=== PATIENT | male | born 2000 | race Caucasian/White ===

== ENCOUNTER 2023-08-28 15:34 | Inpatient (IN) ==
[2023-08-28 16:09] LABS: Basophils # (auto) 0.03 K/uL (0.00-0.20); Basophils % (auto) 0.4 %; Eosinophils # (auto) 0.11 K/uL (0.00-0.50); Eosinophils % (auto) 1.4 %; Hematocrit (blood only) 46.1 % (42.0-52.0); Hemoglobin 15.5 g/dl (14.0-18.0); Immature Granulocytes # (auto) 0.02 K/uL (0.01-0.20); Immature Granulocytes % (auto) 0.3 %; Lymphocytes # (auto) 1.63 K/uL (1.20-3.40); Lymphocytes % (auto) 21.3 %; Mean Corpuscular Hemoglobin 27.3 pg (25.0-34.0); Mean Corpuscular Hgb Conc 33.6 g/dL (32.0-36.0); Mean Corpuscular Volume 81.2 fL (80.0-100.0); Mean Platelet Volume 11.4 fL (9.4-12.4); Monocytes # (auto) 0.48 K/uL (0.11-0.59); Monocytes % (auto) 6.3 %; Neutrophils # (auto) 5.37 K/uL (1.40-6.50); Neutrophils % (auto) 70.3 %; Platelet Count 245 K/uL (130-400); RDW Coefficient of Variation 12.8 % (11.5-14.5); RDW Standard Deviation 37.3 fL (36.4-46.3); Red Blood Count 5.68 M/uL (4.70-6.10); White Blood Count 7.64 K/ul (4.8-10.8)
[2023-08-28 16:29] LABS: Albumin Globulin Ratio 1.5 (0.9-2); Albumin Level 4.7 gm/dl (3.4-5.0); Bilirubin,Total 0.8 mg/dl (0.2-1.0); Calcium 9.7 mg/dl (8.6-10.3); Creatinine Clr Calc Pharmacy 149.8 ml/min; Est GFR (African American) 149.6 ml/min; Globulin 3.2 gm/dl (2.5-4.0); Potassium 4.2 mmol/L (3.5-5.1); Total Protein 7.9 gm/dl (6.0-8.3)
[2023-08-28] MEDS ORDERED: ACETAMINOPHEN 1,000 MG/100 ML VIAL IV STA (16:53)
--- NOTE | 2023-08-28 16:53 | Emergency Department Note ---
Impression & Plan Abdominal pain, RUQ, Gallstone, Biliary colic ED Provider Note HISTORY OF PRESENT ILLNESS: Patient is a 23-year-old male presenting with right upper quadrant abdominal pain. Patient reports that he presented 5 days ago with similar symptoms and was found to have gallstones. He was instructed that if he developed any worsening pain that he should represent to the emergency department. Patient reports that last night he had a dull and constant pain in his right upper quadrant that significantly worsened this morning. Denies any nausea or vomiting. He reports he has tried Tylenol and ibuprofen without any relief of symptoms. Denies any diarrhea but does report his stool is "looser than normal." He denies any history of abdominal surgeries. Denies any dysuria or hematuria. Denies any fevers. States the pain since waking this morning has been constant pressure in his right upper quadrant and intermittently is very sharp and radiates into his back right shoulder. ROS: as above PHYSICAL EXAM: Constitutional: Patient appears in no acute distress. HENT: Head: Normocephalic and atraumatic. Eyes: EOMI, PERRL Mouth/Throat: Mucous membranes moist. Neck: Trachea midline. Neck supple. Cardiovascular: RRR, No murmurs, rubs or gallops. Intact distal pulses. Pulmonary/Chest: No respiratory distress. Breath sounds clear and equal bilaterally. No wheezes or rales. Abdominal: Abdomen soft, no rebound or guarding. RUQ TTP Musculoskeletal: No edema, tenderness or deformity noted. Skin: Warm and dry. No rash, erythema, pallor or cyanosis Psychiatric: Appropriate mood and affect for situation. Neurological: Alert and keenly responsive. CN II-XII grossly intact, moving al l extremities equally and fully. MDM: - Vitals signs showed tachycardia. - History obtained via patient. Patient presents with right upper quadrant abdominal pain. Patient reports that he was diagnosed with a gallstone 5 days ago. He reports that the pain significantly worsened last night and into today. He reports loose stool. Denies any nausea or vomiting. Denies any fevers. Denies any history of abdominal surgeries - Chronic conditions affecting care: None - Differential diagnoses include, but are not limited to: Biliary colic; cholangitis; cholecystitis; hepatitis; right lower lobe pneumonia; pulmonary embolism; pyelonephritis; perforated duodenal ulcer - Order placed for continuous cardiac monitoring. At this time, monitor showed rate of 98 bpm with normal sinus rhythm, per my interpretation. - External medical records reviewed. - Laboratory workup interpreted by myself showed normal WBC; stable electrolytes; normal lipase; normal liver function - RUQ ultrasound showed nonmobile stone in the bladder neck versus a cystic duct. Gallbladder is distended with borderline wall thickening. These findings are equivocal for acute cholecystitis per radiology. - CT abdomen/pelvis with IV contrast showed stone in the gallbladder neck measuring 9 mm. - Patient initially given 1g IV tylenol in ER. On reassessment, he is complaining of pain. Given 50 mcg IV fentanyl. - Discussed case with TY Issa with general surgery. Will see as consult. - Given patient's findings and continued pain on examination, will admit for further pain control and HIDA scan. - Discussion was had with social services assistant about patient's case and need for admission - Hospitalist consulted for admission - Patient admitted to [facility] Hospitalist service for further evaluation and management. ASSESSMENT AND PLAN: Diagnosis: RUQ pain; biliary colic; gallstone Plan: admit Past Med/Surg History Social History Smoking Status: Never smoker Preferred Language: Belarusian Feels Safe at Home: Yes Allergies Allergies Allergy/AdvReac Type Severity Reaction Status Date / Time erythromycin base Allergy Severe Hives and Unverified 08/28/23 18:52 nausea Home Meds Home Medications Medication Instructions Recorded Confirmed albuterol sulfate 90 mcg/actuation 2 puff inhalation .Q4-6H PRN 08/28/23 08/28/23 aerosol inhaler Wheezing cholecalciferol (vitamin D3) 50 50 mcg PO DAILY 08/28/23 08/28/23 mcg (2,000 unit) capsule (Vitamin D3) Results & Data (ED) Vital Signs Vital Signs - 24 hr 08/28/23 15:39 08/28/23 16:45 Temperature 36.7 C Temperature Source Temporal Artery Scan Pulse Rate 71 Pulse Rate [Finger] 98 H Respiratory Rate 18 18 Respiratory Effort / Characteristics Non-Labored Respiratory Depth Normal Blood Pressure 134/96 Blood Pressure [Left Arm] 131/88 Blood Pressure Mean 108 Blood Pressure Mean [Left Arm] 102 Pulse Oximetry 96 98 Oxygen Delivery Method Room Air Room Air Sepsis Recent Fever Within 48 Hours No Sepsis New/Unexplained Change in Mental Status No Sepsis Action Taken by Nursing No Action Required Laboratory Data 08/28/23 15:51 08/28/23 15:51 Lab Results 08/28/23 08/28/23 Range/Units 15:51 15:51 WBC 7.64 (4.8-10.8) K/ul RBC 5.68 (4.70-6.10) M/uL Hgb 15.5 (14.0-18.0) g/dl Hct 46.1 (42.0-52.0) % MCV 81.2 (80.0-100.0) fL MCH 27.3 (25.0-34.0) pg MCHC 33.6 (32.0-36.0) g/dL RDW Std Deviation 37.3 (36.4-46.3) fL RDW Coeff of [place] 12.8 (11.5-14.5) % Plt Count 245 (130-400) K/uL MPV 11.4 (9.4-12.4) fL Immature Gran % (Auto) 0.3 % Neut % (Auto) 70.3 % Lymph % (Auto) 21.3 % [place] % (Auto) 6.3 % Eos % (Auto) 1.4 % Baso % (Auto) 0.4 % Neut # (Auto) 5.37 (1.40-6.50) K/uL Lymph # (Auto) 1.63 (1.20-3.40) K/uL [place] # (Auto) 0.48 (0.11-0.59) K/uL Eos # (Auto) 0.11 (0.00-0.50) K/uL Baso # (Auto) 0.03 (0.00-0.20) K/uL Immature Gran # (Auto) 0.02 (0.01-0.20) K/uL Sodium 137 (136-145) mmol/L Potassium 4.2 (3.5-5.1) mmol/L Chloride 103 (98-107) mmol/L Carbon Dioxide 27 (21-32) mmol/L Anion Gap 7 (3-11) BUN 7 (6-23) mg/dl Creatinine 0.78 (0.6-1.4) mg/dl Est Cr Clr Drug Dosing 149.8 ml/min Est GFR ( Amer) 149.6 ml/min Est GFR (Non-Af Amer) 129.0 ml/min BUN/Creatinine Ratio 9.0 L (10-20) Glucose 82 (70-99(Fasting)) mg/dl Calcium 9.7 (8.6-10.3) mg/dl Total Bilirubin 0.8 (0.2-1.0) mg/dl AST 16 (13-39) U/L ALT 10 (7-52) U/L Alkaline Phosphatase 44 (34-104) U/L Total Protein 7.9 (6.0-8.3) gm/dl Albumin 4.7 (3.4-5.0) gm/dl Globulin 3.2 (2.5-4.0) gm/dl Albumin/Globulin Ratio 1.5 (0.9-2) Lipase 6 L (11-82) U/L Administered Medications Discontinued Medications Fentanyl Citrate (Fentanyl Citrate Pf 100 Mcg/2 Ml Vial) 50 mcg IV NOW STA Stop: 08/28/23 20:39 Last Admin: 08/28/23 20:51 Dose: 50 mcg Documented By: [facility] Acetaminophen (Ofirmev) 1,000 mg in 100 mls @ 400 mls/hr IV NOW STA Stop: 08/28/23 17:07 Last Admin: 08/28/23 17:03 Dose: 400 mls/hr Documented By: [facility] Ioversol (Optiray 320 100ml) 93 ml IV ONCE ONE Stop: 08/28/23 19:27 Last Admin: 08/28/23 19:26 Dose: 93 ml Documented By: [facility] Imaging Data Radiologist's Impression: Gallbladder Ultrasound 08/28/23 15:58 ABDOMINAL ULTRASOUND, RIGHT UPPER QUADRANT HISTORY: Acute right upper quadrant abdominal pain worsening RUQ pain; known gallstones. COMPARISON: 08/23/2023 FINDINGS: Pancreas: The pancreas demonstrates a normal echotexture. Liver: 17 cm in length. Unremarkable. Gallbladder: Mild gallbladder distention with layering biliary sludge. The ga llbladder wall measures up to 0.32 cm. Stones within the gallbladder neck versus cystic duct measuring up to 1 cm, nonmobile. Negative sonographic Sterling sign. No pericholecystic fluid. CBD: 0.4 cm. Right kidney: No hydronephrosis. IMPRESSION: 1. Nonmobile stone within the bladder neck versus cystic duct. The gallbladder is distended with borderline wall thickening. These findings are equivocal for acute cholecystitis as the sonographic Sterling's sign was negative and no pericholecystic fluid is seen. Findings could be correlated with nuclear medicine hepatobiliary scan. 2. No biliary ductal dilation. ACT 112: Negative or not required by law. Electronically signed by: Devaughn Garcia M.D. 08/28/2023 5:52 PM Abdomen/Pelvis CT 08/28/23 18:29 Exam(s): CT ABDOMEN + PELVIS With Contrast IV Amt: 93 ml optiray 320 EXAM: CT Abdomen and Pelvis With Intravenous Contrast CLINICAL HISTORY: Reason for exam: RUQ abdominal pain. TECHNIQUE: Axial computed tomography images of the abdomen and pelvis with intravenous contrast. CTDI is 18.68 mGy and DLP is 920.74 mGy-cm. Automated exposure control was utilized for the study. A dose lowering technique was utilized adhering to the principles of ALARA. CONTRAST: Patient received 93 ml optiray 320 of IV contrast COMPARISON: No relevant prior studies available. FINDINGS: Lung bases: Unremarkable. No mass. No consolidation. ABDOMEN: Liver: Unremarkable. No mass. Gallbladder and bile ducts: Stone in the gallbladder neck measures [address] evidence of acute cholecystitis. If there is concern for acute cholecystitis, ultrasound recommended. No ductal dilation. Pancreas: Unremarkable. No mass. No ductal dilation. Spleen: Unremarkable. No splenomegaly. Adrenals: Unremarkable. No mass. Kidneys and ureters: RIGHT upper pole renal cyst measuring 9 mm. No hydronephrosis. Stomach and bowel: Mild fluid-filled small bowel, correlate for mild enteritis. No obstruction. PELVIS: Appendix: Normal appendix. Bladder: Unremarkable. No mass. Reproductive: Unremarkable as visualized. ABDOMEN and PELVIS: Intraperitoneal space: Unremarkable. No free air. No significant fluid collection. Bones/joints: No acute fracture. No dislocation. Soft tissues: Unremarkable. Vasculature: Unremarkable. No abdominal aortic aneurysm. Lymph nodes: Unremarkable. No enlarged lymph nodes. IMPRESSION: 1. Normal appendix. 2. Stone in the gallbladder neck measures [address] evidence of acute cholecystitis. If there is concern for acute cholecystitis, ultrasound recommended. 3. Mild fluid-filled small bowel, correlate for mild enteritis. Electronically signed by: Param Moran MD 08/28/23 19:52 PM Discharge Plan Visit Data Chief Complaint: Abdominal Pain Stated Complaint: GALL STONE PAIN ED Provider: Katty Nelson Discharge Problem: Abdominal pain, RUQ, Gallstone, Biliary colic Forms Stand Alone Forms: [facility] Prescriptions Prescriptions: No Action albuterol sulfate 90 mcg/actuation HFA aerosol inhaler 2 puff INHALATION .Q4-6H PRN (Reason: Wheezing) cholecalciferol (vitamin D3) [Vitamin D3] 50 mcg (2,000 unit) Capsule 50 mcg PO DAILY Referrals Referrals: [facility] [Primary Care Provider] -
--- NOTE | 2023-08-28 17:54 | Ultrasound Report ---
ABDOMINAL ULTRASOUND, RIGHT UPPER QUADRANT HISTORY: Acute right upper quadrant abdominal pain worsening RUQ pain; known gallstones. COMPARISON: 08/23/2023 FINDINGS: Pancreas: The pancreas demonstrates a normal echotexture. Liver: 17 cm in length. Unremarkable. Gallbladder: Mild gallbladder distention with layering biliary sludge. The gallbladder wall measures up to 0.32 cm. Stones within the gallbladder neck versus cystic duct measuring up to 1 cm, nonmobile. Negative sonographic Sterling sign. No pericholecystic fluid. CBD: 0.4 cm. Right kidney: No hydronephrosis. IMPRESSION: 1. Nonmobile stone within the bladder neck versus cystic duct. The gallbladder is distended with bord braulio wall thickening. These findings are equivocal for acute cholecystitis as the sonographic Bobby y's sign was negative and no pericholecystic fluid is seen. Findings could be correlated with nuclear medicine hepatobiliary scan. 2. No biliary ductal dilation. ACT 112: Negative or not required by law. Electronically signed by: Devaughn Garcia M.D. 08/28/2023 5:52 PM
[2023-08-28] MEDS ORDERED: OPTIRAY 320 100ml IV ONE (19:26)
--- NOTE | 2023-08-28 19:53 | CT Scan Report ---
Exam(s): CT ABDOMEN + PELVIS With Contrast IV Amt: 93 ml optiray 320 EXAM: CT Abdomen and Pelvis With Intravenous Contrast CLINICAL HISTORY: Reason for exam: RUQ abdominal pain. TECHNIQUE: Axial computed tomography images of the abdomen and pelvis with intravenous contrast. CTDI is 18.68 mGy and DLP is 920.74 mGy-cm. Automated exposure control was utilized for the study. A dose lowering technique was utilized adhering to the principles of ALARA. CONTRAST: Patient received 93 ml optiray 320 of IV contrast COMPARISON: No relevant prior studies available. FINDINGS: Lung bases: Unremarkable. No mass. No consolidation. ABDOMEN: Liver: Unremarkable. No mass. Gallbladder and bile ducts: Stone in the gallbladder neck measures [address] evidence of acute cholecystitis. If there is concern for acute cholecystitis, ultrasound recommended. No ductal dilation. Pancreas: Unremarkable. No mass. No ductal dilation. Spleen: Unremarkable. No splenomegaly. Adrenals: Unremarkable. No mass. Kidneys and ureters: RIGHT upper pole renal cyst measuring 9 mm. No hydronephrosis. Stomach and bowel: Mild fluid-filled small bowel, correlate for mild enteritis. No obstruction. PELVIS: Appendix: Normal appendix. Bladder: Unremarkable. No mass. Reproductive: Unremarkable as visualized. ABDOMEN and PELVIS: Intraperitoneal space: Unremarkable. No free air. No significant fluid collection. Bones/joints: No acute fracture. No dislocation. Soft tissues: Unremarkable. Vasculature: Unremarkable. No abdominal aortic aneurysm. Lymph nodes: Unremarkable. No enlarged lymph nodes. IMPRESSION: 1. Normal appendix. 2. Stone in the gallbladder neck measures [address] evidence of acute cholecystitis. If there is concern for acute cholecystitis, ultrasound recommended. 3. Mild fluid-filled small bowel, correlate for mild enteritis. Electronically signed by: Param Moran MD 08/28/23 19:52 PM
[2023-08-28] MEDS ORDERED: fentaNYL citrate PF 100 MCG/2 ML VIAL IV STA (20:38)
--- NOTE | 2023-08-28 21:12 | Surgery Consultation ---
Date of Consultation August 28, 2023 Assessment & Plan (1) Cholelithiasis: Physician she is having the patient mid on the hospital service. Recommend proceeding as follows: Provide analgesics. Would recommend utilizing NSAIDs versus opioids Provide antiemetics Provide IV fluid for hydration Keep the patient n.p.o. for the present time As there is no evidence of cholecystitis or not feel antibiotics are needed at this time The patient be reassessed in the morning by my attending physician Dr. Dias. She will discuss timing of potential cholecystectomy with the patient at that time. Supervising Physician Co-Signing Physician Notes This case was discussed with the surgical PA. I agree with this plan. History of Present Illness Reason for Consultation: Cholelithiasis History of Present Illness This is a 23-year-old male who presented the emergency department secondary to abdominal pain. Patient notes that he has been having on and off abdominal pain for over 1 week. He was seen in the emergency department on 08/23/2023 which will be described below. Patient says that since the a for mentioned emergency department visit he has been having pain primarily located in the right upper quadrant without radiation that comes and goes in an unpredictable fashion. He does note that the pain usually occurs at night. He has not had any nausea or vomiting and he denies any fevers, shakes, or chills. He has never had any abdominal surgeries in the past. Of note, the patient does report that his father did have a cholecystectomy. Since arrival to the emergency department the patient has had labs and imaging which independent reviewed. Patient had a gallbladder ultrasound that showed a nonmobile gallstone within the gallbladder neck. The gallbladder was noted to be distended with borderline gallbladder wall thickening at 0.32 cm. The interpreting radiologist felt that these findings were equivocal for acute cholecystitis a CT scan of the abdomen pelvis again demonstrated a stone in the gallbladder neck measuring approximately [address] scan evidence of acute cholecystitis. Labs included a CBC her white blood cell count, hemoglobin, hematocrit, and platelet count were all normal. Chemistry profile showed sodium, potassium, BUN, and creatinine were normal. Patient had no elevation of his bilirubin, transaminases, or alkaline phosphatase. His lipase is not elevated. Of note, the patient was in the emergency department on 08/23/2023 secondary to abdominal pain on this date the patient did have labs and imaging which I reviewed. CBC revealed white blood cell count, hemoglobin, hematocrit, platelet count were normal. Chemistry profile showed sodium, potassium, BUN, and creatinine were normal. There is again no elevation of patient's bilirubin, transaminases, alkaline phosphatase, or lipase the patient did undergo a gallbladder ultrasound at this visit that showed some echogenic foci within the gallbladder which favored gallstones. There is no gallbladder wall thickening noted on this study. During this emergency department visit the patient did receive some analgesics and it was felt he was stable for discharge home as there is no evidence of cholecystitis on imaging At the time of my interview he was resting comfortably in bed and he was in no distress. Concerning past medical history the patient is treated for asthma Concerning past surgical history he denies any prior surgeries Concerning social history is a non-smoker. Concerning family history the patient's father suffered from cholecystitis. Allergies Allergy/AdvReac Type Severity Reaction Status Date / Time erythromycin base Allergy Severe Hives and Unverified 08/28/23 18:52 nausea Home Medications Medication Instructions Recorded Confirmed Type albuterol sulfate 90 mcg/actuation 2 puff inhalation .Q4-6H PRN 08/28/23 08/28/23 History aerosol inhaler Wheezing cholecalciferol (vitamin D3) 50 50 mcg PO DAILY 08/28/23 08/28/23 History mcg (2,000 unit) capsule (Vitamin D3) Patient History Social History Smoking Status: Never smoker Hx Alcohol Use: Yes Alcohol type: beer Hx Substance Use: No Preferred Language: Moroccan Communication Ability: Effective Crm Campaign Manager Required: No Beliefs That Will Affect Care: None Current Living Situation: Other Current Living Situation Comment: Rental with roommates Other Information That Helps Us Care for You: No Feels Safe at Home: Yes Safety Concerns: Feels Safe At This Time Assistive Devices: None Review of Systems Constitutional: no fever and no chills Ear, Nose, Mouth, Throat: no ear pain Respiratory: no cough Cardiovascular: no chest pain Gastrointestinal: as per Subjective / HPI Genitourinary: no dysuria Musculoskeletal: no back pain Integumentary: no rash Neurologic: no localized weakness Physical Exam Constitutional: WD/WN, vitals as above Eyes: + anicteric sclerae ENMT: Ears: no hearing impairment and no external ear abnormality Mouth: no oropharynx abnormality Neck: trachea midline Respiratory: normal respiratory effort; no respiratory distress and no labored breathing Cardiovascular: Rate/Rhythm: regular rate and regular rhythm Gastrointestinal (Abdomen): Abdomen is soft and nonrigid. It is nondistended. There is pain noted to palpation in the right upper quadrant with a positive Sterling sign Musculoskeletal: No calf tenderness Skin: no rashes Neurologic: moves all extremities Psychiatric: A+Ox3, euthymic affect Results & Data Vital Signs (Past 12 Hours) Vital Signs Temp Pulse Pulse Resp BP BP Pulse Ox 08/28/23 16:45 98 H 18 131/88 98 08/28/23 15:39 36.7 C 71 18 134/96 96 O2 Del Method 08/28/23 16:45 Room Air 08/28/23 15:39 Room Air PG Care Time/CCT Total # of Minutes Spent Total Time Spent with Patient: Total time spent is greater than 50% in coordination of care (as documented) at patient's floor/unit and/or counseling patient: Coding Level of Care Code 61002 IN/OBS CONSULT LVL 5,80M Diagnoses Cholelithiasis K80.20
--- NOTE | 2023-08-28 21:37 | History & Physical Report ---
Date of Service August 28, 2023 Assessment & Plan (1) Biliary colic: (2) Asthma: Plan Pt is a 23 year old male with PMH of asthma presenting with RUQ abdominal pain. Initial workup, given lack of WBC elevation as well as imaging findings, appears most consistent with biliary colic due to cholelithiasis rather than overt cholecystitis. #Biliary Colic: - Admit to med/surg unit - No evidence of acute cholecystitis at this time, will defer antibiotics at this time - NPO - IV maintenance fluids - Pain control with IV toradol, avoid opioids - Prn IV Zofran for nausea/vomiting - Surgery consulted, agree that emergent surgery is not warranted at this time, continue to appreciate recs - AM Labs: repeat CBC, CMP, lipase #Asthma: - Continue prn albuterol Dispo: Med/Surg Diet: NPO VTE ppx: deferred, pt able to ambulate Code: Full code History of Present Illness Chief Complaint: abdominal pain Primary Care Provider: [facility] Pt is a 23 year old male with PMH of asthma presenting with abdominal pain. Patient has been having intermittent episodes of RUQ abdominal pain for several months now, became significantly more frequent and more painful over the past week. Patient was seen in the ED on 08/23, workup significant for gallstones on US but no evidence of cholecystitis found, patient was subsequently discharged and told to return if sx recur or worsen. Patient notes that sx initially seemed less intense after discharge from ED, but began experiencing worsening acute pain yesterday that has been constant since. Patient is unsure if abdominal pain is related to eating, notes that he has had poor appetite this week. Also states that his stools have been looser than usual, denies nausea or vomiting. ED Course: Lab workup negative for elevation in WBC count, patient is afebrile. LFTs WNL. Repeat gallbladder US showed nonmobile stone within gallbladder neck vs cystic duct, GB distension with borderline wall thickening. Negative sonographic Sterling sign, no pericholecystic fluid. CT abdomen also done, significant for 9mm stone in gallbladder neck, negative for evidence of acute cholecystitis. Patient given Acetaminophen and fenatanyl for pain control. Allergies Allergy/AdvReac Type Severity Reaction Status Date / Time erythromycin base Allergy Severe Hives and Unverified 08/28/23 18:52 nausea Home Medications Medication Instructions Recorded Confirmed Type albuterol sulfate 90 mcg/actuation 2 puff inhalation .Q4-6H PRN 08/28/23 08/28/23 History aerosol inhaler Wheezing cholecalciferol (vitamin D3) 50 50 mcg PO DAILY 08/28/23 08/28/23 History mcg (2,000 unit) capsule (Vitamin D3) Past Med/Surg History Social History Smoking Status: Never smoker Hx Alcohol Use: Yes Alcohol type: beer Hx Substance Use: No Preferred Language: French Communication Ability: Effective Plate Conditioner Required: No Beliefs That Will Affect Care: None Current Living Situation: Other Current Living Situation Comment: Rental with roommates Other Information That Helps Us Care for You: No Feels Safe at Home: Yes Safety Concerns: Feels Safe At This Time Assistive Devices: None Review of Systems Review of Systems: All systems reviewed & are unremarkable except as noted in HPI & below Physical Exam Constitutional: WD/WN, vitals as above in mild distress Respiratory: normal respiratory effort, lungs clear to auscultation Cardiovascular: RRR, no murmur, no edema Gastrointestinal (Abdomen): Abdomen non-distended, bowel sounds intact, RUQ tender to palpation, negative Sterling sign Skin: no rashes, warm and dry Psychiatric: A+Ox3, euthymic affect Results & Data Results & Data Vital Signs (Past 12 Hours) Vital Signs Temp Pulse Pulse Resp BP BP Pulse Ox 08/28/23 16:45 98 H 18 131/88 98 08/28/23 15:39 36.7 C 71 18 134/96 96 O2 Del Method 08/28/23 16:45 Room Air 08/28/23 15:39 Room Air Laboratory Results Abnormal lab results 08/28/23 Range/Units 15:51 BUN/Creatinine Ratio 9.0 L (10-20) Lipase 6 L (11-82) U/L Diagnostic Findings Gallbladder Ultrasound 08/28/23 15:58 ABDOMINAL ULTRASOUND, RIGHT UPPER QUADRANT HISTORY: Acute right upper quadrant abdominal pain worsening RUQ pain; known gallstones. COMPARISON: 08/23/2023 FINDINGS: Pancreas: The pancreas demonstrates a normal echotexture. Liver: 17 cm in length. Unremarkable. Gallbladder: Mild gallbladder distention with layering biliary sludge. The gallbladder wall measures up to 0.32 cm. Stones within the gallbladder neck versus cystic duct measuring up to 1 cm, nonmobile. Negative sonographic Sterling sign. No pericholecystic fluid. CBD: 0.4 cm. Right kidney: No hydronephrosis. IMPRESSION: 1. Nonmobile stone within the bladder neck versus cystic duct. The gallbladder is distended with borderline wall thickening. These findings are equivocal for acute cholecystitis as the sonographic Sterling's sign was negative and no pericholecystic fluid is seen. Findings could be correlated with nuclear medicine hepatobiliary scan. 2. No biliary ductal dilation. ACT 112: Negative or not required by law. Electronically signed by: Devaughn Garcia M.D. 08/28/2023 5:52 PM Abdomen/Pelvis CT 08/28/23 18:29 Exam(s): CT ABDOMEN + PELVIS With Contrast IV Amt: 93 ml optiray 320 EXAM: CT Abdomen and Pelvis With Intravenous Contrast CLINICAL HISTORY: Reason for exam: RUQ abdominal pain. TECHNIQUE: Axial computed tomography images of the abdomen and pelvis with intravenous contrast. CTDI is 18.68 mGy and DLP is 920.74 mGy-cm. Automated exposure control was utilized for the study. A dose lowering technique was utilized adhering to the principles of ALARA. CONTRAST: Patient received 93 ml optiray 320 of IV contrast COMPARISON: No relevant prior studies available. FINDINGS: Lung bases: Unremarkable. No mass. No consolidation. ABDOMEN: Liver: Unremarkable. No mass. Gallbladder and bile ducts: Stone in the gallbladder neck measures [address] evidence of acute cholecystitis. If there is concern for acute cholecystitis, ultrasound recommended. No ductal dilation. Pancreas: Unremarkable. No mass. No ductal dilation. Spleen: Unremarkable. No splenomegaly. Adrenals: Unremarkable. No mass. Kidneys and ureters: RIGHT upper pole renal cyst measuring 9 mm. No hydronephrosis. Stomach and bowel: Mild fluid-filled small bowel, correlate for mild enteritis. No obstruction. PELVIS: Appendix: Normal appendix. Bladder: Unremarkable. No mass. Reproductive: Unremarkable as visualized. ABDOMEN and PELVIS: Intraperitoneal space: Unremarkable. No free air. No significant fluid collection. Bones/joints: No acute fracture. No dislocation. Soft tissues: Unremarkable. Vasculature: Unremarkable. No abdominal aortic aneurysm. Lymph nodes: Unremarkable. No enlarged lymph nodes. IMPRESSION: 1. Normal appendix. 2. Stone in the gallbladder neck measures [address] evidence of acute cholecystitis. If there is concern for acute cholecystitis, ultrasound recommended. 3. Mild fluid-filled small bowel, correlate for mild enteritis. Electronically signed by: Param Moran MD 08/28/23 19:52 PM Supervising Physician Co-Signing Physician Notes Patient seen and examined, chart reviewed, case discussed with Dr. Hogan and I agree with the assessment plan as document above. In brief, patient is a 23-year-old male with history of asthma presenting with abdominal pain. He has been having several months of intermittent right upper quadrant pain which has become more consistent and severe over the past week. Patient was seen in the E R on 08/23/2023 was found to have gallstones on ultrasound but no evidence of acute cholecystitis. He was discharged home with pain medication which has been taking with no improvement. He presents this evening with persistent ongoing pain, tentative 10 in severity. No additional complaints at this time On physical exam patient is afebrile, hemodynamically stable and nontoxic in appearance Skinwarm, dry, intact, no rashes, lesions, jaundice or icterus HEENTmoist mucous membranes, neck supple Heart+ S1, S2, regular, no murmur/rub/gallops LungsCTA with no rales, rhonchi, wheezes Abdomenpositive bowel sounds, soft, nondistended, right upper quadrant pain present on palpation without rebound/guarding/peritonitis Extremitieswarm, well-perfused, 2+ pulses Labs and images reviewed. Significant for normal WBC count = 7.64. Normal chemistry. Normal LFTs including AST, ALT and bilirubin. Normal lipase at [address] results as above Assessment/[id number] male with history of well-controlled asthma presenting with biliary colic. Found to have gallstone in the gallbladder neck. No clear evidence of acute cholecystitis. Normal WBC count. Patient afebrile. Normal LFTs and lipase. Admit to medical Keep n.p.o. IV fluids with LR at 80 mL/h x 2 L Pain control with Toradol 50 mg IV every 6 hours as needed Zofran as needed for nausea We will avoid morphine at this time HIDA scan ordered. Uncertain if this will be performed tomorrow as it is Thursday General surgery consultation appreciated. Remainder of plan as above Resident Activity Tracking Resident Involvement: Resident Care Provided Care Provided: Adult [facility]
[2023-08-28] MEDS ORDERED: KETOROLAC TROMETHAMINE 15 MG/ML VIAL IV ONE (23:15)
[2023-08-29] MEDS: LACTATED RINGER'S 1,000 ML IV SCH ×2 (00:01→11:28)
[2023-08-29] MEDS ORDERED: ALBUTEROL HFA 8 GM INHALER INH PRN (00:58)
[2023-08-29] MEDS ORDERED: ONDANSETRON INJ 2 MG/ML 2 ML VIAL IV PRN (00:58)
--- NOTE | 2023-08-29 03:08 | Billing Data ---
Date of Service August 28, 2023 Coding Level of Care Code 42117 INT INP/OBS CARE
[2023-08-29] MEDS ORDERED: KETOROLAC TROMETHAMINE 15 MG/ML VIAL IV ONE (04:06)
--- NOTE | 2023-08-29 05:56 | Surgery Progress Note ---
Date of Service August 29, 2023 Assessment & Plan (1) Biliary colic: Plan: The patient has been admitted on the hospitalist service. From a surgical perspective we recommend proceeding as follows: Continue analgesics, utilizing NSAIDs versus opioids Continue antiemetics as needed Continue IV fluid for hydration The patient is currently NPO. We will maintain n.p.o. status until evaluated by surgical attending who will discuss the timing of potential cholecystectomy with patient. If no surgical plans this admission, we may be able to advance his diet and assess his pain response to this. Check a.m. labs when available Admission and Anticipated Discharge Date Admission Date: August 28, 2023 Supervising Physician Co-Signing Physician Notes I saw this patient this am. At the time of my examination, he was having recurrence of abdominal pain. Again he was administered a dose of Toradol and pain significantly reduces to almost completely resolved. He did have a slight elevation of WBC this am. Will F/U am labs and symptoms. If his pain is still having worsened episodes of pain and leukocytosis elevation, plan will be for OR this admission. Start PPI for now. Subjective Patient is resting comfortably in bed. Since admission to the hospital he has not had any nausea or vomiting. He did report some epigastric pain shortly after arrival to the floor, but notes that his pain has nearly completely resolved at the present time. He denies any fevers, shakes, or chills. Physical Exam Gastrointestinal (Abdomen): Abdomen is soft and nondistended. There is no rebound tenderness or guarding. There is no pain noted with palpation at the time of my exam this morning. Results & Data Vital Signs (Past 12 Hours) Vital Signs Temp Pulse Resp BP Pulse Ox O2 Del Method 08/29/23 01:26 Room Air 08/29/23 00:43 36.6 C 64 18 119/73 98 Room Air 08/28/23 22:00 93 H 129/79 100 Room Air PG Care Time/CCT Total # of Minutes Spent Total Time Spent with Patient: Total time spent is greater than 50% in coordination of care (as documented) at patient's floor/unit and/or counseling patient: Coding Level of Care Code 93838 SUB INP/OBS CARE 1/25MIN Diagnoses Biliary colic K80.50
[2023-08-29 07:29] LABS: Hematocrit (blood only) 40.5 % (42.0-52.0); Mean Corpuscular Hemoglobin 27.3 pg (25.0-34.0); Mean Corpuscular Hgb Conc 34.6 g/dL (32.0-36.0); Mean Corpuscular Volume 79.1 fL (80.0-100.0); Mean Platelet Volume 11.6 fL (9.4-12.4); Platelet Count 228 K/uL (130-400); RDW Coefficient of Variation 12.9 % (11.5-14.5); RDW Standard Deviation 36.4 fL (36.4-46.3); Red Blood Count 5.12 M/uL (4.70-6.10); White Blood Count 11.13 K/ul (4.8-10.8)
[2023-08-29 07:45] LABS: Alanine Aminotransferase 6 U/L (7-52); Albumin Globulin Ratio 1.4 (0.9-2); Albumin Level 4.1 gm/dl (3.4-5.0); Alkaline Phosphatase 36 U/L (34-104); Anion Gap 10 (3-11); Aspartate Aminotransferase 12 U/L (13-39); BUN Creatinine Ratio 12.5 (10-20); Bilirubin,Total 0.8 mg/dl (0.2-1.0); Blood Urea Nitrogen 9 mg/dl (6-23); Calcium 8.8 mg/dl (8.6-10.3); Carbon Dioxide 23 mmol/L (21-32); Chloride 105 mmol/L (98-107); Creatinine Clr Calc Pharmacy 162.3 ml/min; Est GFR (African American) > 150.0 ml/min; Est GFR (Non-African American) 133.3 ml/min; Globulin 2.9 gm/dl (2.5-4.0); Glucose 78 mg/dl (70-99(Fasting)); Lipase 5 U/L (11-82); Potassium 3.9 mmol/L (3.5-5.1); Sodium 138 mmol/L (136-145)
[2023-08-29] MEDS: KETOROLAC TROMETHAMINE 15 MG/ML VIAL IV PRN ×2 (09:37→15:43)
[2023-08-29 14:33] LABS: Appearance Urine Clear (Clear); Bacteria Urine Automated Negative (Negative); Blood Urine Negative (Negative); Color Urine Dark Yellow; Glucose Urine UA Negative (Negative); Ketones Urine 3+ (Negative); Leukocyte Esterase Urine Negative (Negative); Nitrite Urine Negative (Negative); Protein Urine 1+ (Negative); RBC Urine Automated 0-4 /hpf (0-4); Specific Gravity Urine > 1.045 (1.000-1.030); Urobilinogen Urine Negative (Negative)
[2023-08-29 14:35] LABS: Bilirubin Urine 1+ (Negative)
--- NOTE | 2023-08-29 14:48 | Hospitalist Progress Note ---
Date of Service August 29, 2023 Assessment & Plan (1) Biliary colic: (2) Asthma: Plan Pt is a 23 year old male with PMH of asthma presenting with RUQ abdominal pain. Initial workup, given lack of WBC elevation as well as imaging findings, appears most consistent with biliary colic due to cholelithiasis rather than overt cholecystitis. #Biliary Colic: - No evidence of acute cholecystitis at this time, will defer antibiotics at this time - NPO - IV maintenance fluids - Pain control with IV toradol, avoid opioids - Prn IV Zofran for nausea/vomiting - Surgery consulted, awaiting further recommendations patient still complains of intermittent pain responding to IV Toradol - AM Labs: repeat CBC, CMP, lipase #Asthma: - Continue prn albuterol Dispo: Med/Surg Diet: NPO VTE ppx: deferred, pt able to ambulate Code: Full code Admission and Anticipated Discharge Date Admission Date: August 28, 2023 Subjective Patient says that he woke up at 4 AM and then 9 AM in pain. He required IV pain medications that relieved his pain both the times. Review of Systems Review of Systems: All systems reviewed & are unremarkable except as noted in Subjective Physical Exam Physical Exam: General: Awake, conversant Heart: S1, S2/regular rate and rhythm, no murmur rubs or gallops Lungs: Clear to auscultation bilaterally. Normal effort Abdomen: Soft/nontender/nondistended. No hepatosplenomegaly Extremities: No clubbing/cyanosis. No edema Behavior: Appropriate, cooperative Results & Data Results & Data Vital Signs (Past 12 Hours) Vital Signs Temp Pulse Resp BP Pulse Ox O2 Del Method 08/29/23 14:26 37.0 C 95 H 18 117/72 98 Room Air 08/29/23 07:18 36.8 C 66 18 105/65 97 Room Air Laboratory Results Abnormal lab results 08/28/23 08/29/23 08/29/23 Range/Units 15:51 06:52 06:52 WBC 11.13 H (4.8-10.8) K/ul Hct 40.5 L (42.0-52.0) % MCV 79.1 L (80.0-100.0) fL BUN/Creatinine Ratio 9.0 L (10-20) AST 12 L (13-39) U/L ALT 6 L (7-52) U/L Lipase 6 L 5 L (11-82) U/L Ur Specific [place] (1.000-1.030) Urine Protein (Negative) Urine Ketones (Negative) Urine Bilirubin (Negative) U Epithel Cells (Auto) (0-5) /lpf 08/29/23 Range/Units Unknown WBC (4.8-10.8) K/ul Hct (42.0-52.0) % MCV (80.0-100.0) fL BUN/Creatinine Ratio (10-20) AST (13-39) U/L ALT (7-52) U/L Lipase (11-82) U/L Ur Specific [place] > 1.045 H (1.000-1.030) Urine Protein 1+ H (Negative) Urine Ketones 3+ H (Negative) Urine Bilirubin 1+ H (Negative) U Epithel Cells (Auto) 5-10 H (0-5) /lpf Diagnostic Findings Gallbladder Ultrasound 08/28/23 15:58 ABDOMINAL ULTRASOUND, RIGHT UPPER QUADRANT HISTORY: Acute right upper quadrant abdominal pain worsening RUQ pain; known gallstones. COMPARISON: 08/23/2023 FINDINGS: Pancreas: The pancreas demonstrates a normal echotexture. Liver: 17 cm in length. Unremarkable. Gallbladder: Mild gallbladder distention with layering biliary sludge. The gallbladder wall measures up to 0.32 cm. Stones within the gallbladder neck versus cystic duct measuring up to 1 cm, nonmobile. Negative sonographic Sterling sign. No pericholecystic fluid. CBD: 0.4 cm. Right kidney: No hydronephrosis. IMPRESSION: 1. Nonmobile stone within the bladder neck versus cystic duct. The gallbladder is distended with borderline wall thickening. These findings are equivocal for acute cholecystitis as the sonographic Sterling's sign was negative and no pericholecystic fluid is seen. Findings could be correlated with nuclear medicine hepatobiliary scan. 2. No biliary ductal dilation. ACT 112: Negative or not required by law. Electronically signed by: Devaughn Garcia M.D. 08/28/2023 5:52 PM Abdomen/Pelvis CT 08/28/23 18:29 Exam(s): CT ABDOMEN + PELVIS With Contrast IV Amt: 93 ml optiray 320 EXAM: CT Abdomen and Pelvis With Intravenous Contrast CLINICAL HISTORY: Reason for exam: RUQ abdominal pain. TECHNIQUE: Axial computed tomography images of the abdomen and pelvis with intravenous contrast. CTDI is 18.68 mGy and DLP is 920.74 mGy-cm. Automated exposure control was utilized for the study. A dose lowering technique was utilized adhering to the principles of ALARA. CONTRAST: Patient received 93 ml optiray 320 of IV contrast COMPARISON: No relevant prior studies available. FINDINGS: Lung bases: Unremarkable. No mass. No consolidation. ABDOMEN: Liver: Unremarkable. No mass. Gallbladder and bile ducts: Stone in the gallbladder neck measures [address] evidence of acute cholecystitis. If there is concern for acute cholecystitis, ultrasound recommended. No ductal dilation. Pancreas: Unremarkable. No mass. No ductal dilation. Spleen: Unremarkable. No splenomegaly. Adrenals: Unremarkable. No mass. Kidneys and ureters: RIGHT upper pole renal cyst measuring 9 mm. No hydronephrosis. Stomach and bowel: Mild fluid-filled small bowel, correlate for mild enteritis. No obstruction. PELVIS: Appendix: Normal appendix. Bladder: Unremarkable. No mass. Reproductive: Unremarkable as visualized. ABDOMEN and PELVIS: Intraperitoneal space: Unremarkable. No free air. No significant fluid collection. Bones/joints: No acute fracture. No dislocation. Soft tissues: Unremarkable. Vasculature: Unremarkable. No abdominal aortic aneurysm. Lymph nodes: Unremarkable. No enlarged lymph nodes. IMPRESSION: 1. Normal appendix. 2. Stone in the gallbladder neck measures [address] evidence of acute cholecystitis. If there is concern for acute cholecystitis, ultrasound recommended. 3. Mild fluid-filled small bowel, correlate for mild enteritis. Electronically signed by: Param Moran MD 08/28/23 19:52 PM PG Care Time/CCT Total # of Minutes Spent Total Time Spent with Patient: Total time spent is greater than 50% in coordination of care (as documented) at patient's floor/unit and/or counseling patient: Coding Level of Care Code 72816 SUB INP/OBS CARE 2/35MIN Diagnoses Biliary colic K80.50 Asthma J45.909
[2023-08-29] MEDS: PANTOprazole 40 MG in SYRINGE 0 ML IV SCH (15:09)
[2023-08-30] MEDS ORDERED: LACTATED RINGER'S 1,000 ML IV SCH (00:15)
[2023-08-30] MEDS: KETOROLAC TROMETHAMINE 15 MG/ML VIAL IV PRN (03:38)
--- NOTE | 2023-08-30 05:32 | Surgery Progress Note ---
Date of Service August 30, 2023 Assessment & Plan (1) Biliary colic: Plan: The patient has been admitted on the hospitalist service. From a surgical perspective we recommend proceeding as follows: Continue analgesics, utilizing NSAIDs versus opioids Continue antiemetics as needed Continue IV fluid for hydration Continue n.p.o. status. Will discuss case with surgical attending will determine timing of potential cholecystectomy Admission and Anticipated Discharge Date Admission Date: August 28, 2023 Supervising Physician Co-Signing Physician Notes I have seen and examined this patient this am. He continues with ongoing pain only subsides with pain medication. Has remained NPO. He will be taken to the OR for laparoscopic cholecystectomy. The details of the procedure have been explained to him including the risks and benefits. He expressed understanding and all of his questions were answered. Consent was obtained. Subjective Patient is resting comfortably in bed. He does note that he took a few sips of water yesterday which seem to result in right upper quadrant abdominal pain. He denies any nausea or vomiting. He denies any fevers, shakes, or chills. Physical Exam Gastrointestinal (Abdomen): Abdomen is soft and nondistended. There is no rebound tenderness or guarding but patient did experience pain with palpation in the right upper quadrant. Results & Data Vital Signs (Past 12 Hours) Vital Signs Temp Pulse Resp BP Pulse Ox O2 Del Method 08/29/23 21:10 37.2 C 100 H 16 134/75 98 Room Air PG Care Time/CCT Total # of Minutes Spent Total Time Spent with Patient: Total time spent is greater than 50% in coordination of care (as documented) at patient's floor/unit and/or counseling patient: Coding Level of Care Code 03121 SUB INP/OBS CARE 25MIN Diagnoses Biliary colic K80.50
[2023-08-30] MEDS ORDERED: ONDANSETRON INJ 2 MG/ML 2 ML VIAL IV PRN (08:15)
[2023-08-30] MEDS ORDERED: ePHEDrine sulfate 50 MG/ML AMP IV PRN (08:15)
[2023-08-30] MEDS ORDERED: ATROPINE SULFATE 0.1 MG/ML 10ML SYR IV PRN (08:15)
[2023-08-30] MEDS ORDERED: fentaNYL citrate PF 100 MCG/2 ML VIAL IV PRN (08:15)
--- NOTE | 2023-08-30 08:15 | Anesthesiology Consultation ---
Date of Service August 30, 2023 Assessment & Plan Chart Review Chart Review: entry level recruiter initiated History Surgery Operation Date: 08/30/23 09:30 Proposed Procedures p Laparoscopic Cholecystectomy - Pam Gutierrez DO Height/Weight Height: 5 ft 9 in Weight: 80.399 kg Allergies Allergy/AdvReac Type Severity Reaction Status Date / Time erythromycin base Allergy Severe Hives and Unverified 08/28/23 18:52 nausea Medications Home Medications Medication Instructions Recorded Confirmed Last Taken albuterol sulfate 90 mcg/actuation 2 puff inhalation .Q4-6H PRN 08/28/23 08/28/23 Unknown aerosol inhaler Wheezing cholecalciferol (vitamin D3) 50 50 mcg PO DAILY 08/28/23 08/28/23 08/27/23 mcg (2,000 unit) capsule (Vitamin D3) Active Medications Generic Name Dose Route Start Last Admin Trade Name Freq PRN Reason Stop Dose Admin Pantoprazole Sodium 40 mg/ 10 mls @ 5 mls/min 08/29/23 14:06 08/29/23 15:09 Syringe IV 09/28/23 14:05 5 mls/min DAILY@1100 MITUL Administration Lactated Ringer's 1,000 mls @ 80 mls/hr 08/30/23 00:15 08/30/23 00:47 Lr IV 08/30/23 12:44 80 mls/hr .[id number] MITUL Administration Ketorolac Tromethamine 15 mg 08/28/23 21:41 08/30/23 03:38 Ketorolac Tromethamine 15 Mg/Ml Vial IV 09/02/23 21:40 15 mg Q6H PRN Administration Pain Social History Smoking Status: Never smoker Hx Alcohol Use: Yes Alcohol type: beer alcohol intake frequency: holidays/special occasions only Hx Substance Use: No substance use type: does not use Physical Exam Vital Signs Last Vital Signs Temp 98.1 F 08/30/23 07:35 Pulse 85 08/30/23 07:35 Resp 18 08/30/23 07:35 BP 102/67 08/30/23 07:35 Pulse Ox 97 08/30/23 07:35 O2 Del Method Room Air 08/30/23 07:35 Testing Laboratory Results 08/29/23 06:52 08/29/23 06:52 Urine Color Dark Yellow 08/29/23 Unknown Urine Appearance Clear (Clear) 08/29/23 Unknown Urine pH 6.0 (4.5-7.5) 08/29/23 Unknown Ur Specific [place] > 1.045 (1.000-1.030) H 08/29/23 Unknown Urine Protein 1+ (Negative) H 08/29/23 Unknown Urine Glucose (UA) Negative (Negative) 08/29/23 Unknown Urine Ketones 3+ (Negative) H 08/29/23 Unknown Urine Nitrite Negative (Negative) 08/29/23 Unknown Ur Leukocyte Esterase Negative (Negative) 08/29/23 Unknown Urine WBC (Auto) 1-5 /hpf (0-5) 08/29/23 Unknown Urine RBC (Auto) 0-4 /hpf (0-4) 08/29/23 Unknown U Hyaline Cast (Auto) 1-5 /lpf (0-5) 08/29/23 Unknown U Epithel Cells (Auto) 5-10 /lpf (0-5) H 08/29/23 Unknown Urine Bacteria (Auto) Negative (Negative) 08/29/23 Unknown
[2023-08-30] MEDS ORDERED: DEXAMETHASONE SOD INJ 4 MG/ML VIAL ONE (08:36)
[2023-08-30] MEDS ORDERED: LIDOCAINE 2% 2 ML VIAL/AMP(20MG/ML) INFIL ONE (08:36)
[2023-08-30] MEDS ORDERED: ONDANSETRON INJ 2 MG/ML 2 ML VIAL ONE (08:36)
[2023-08-30] MEDS ORDERED: MIDAZOLAM HCL 1 MG/ML 2ML VIAL ONE (08:36)
[2023-08-30] MEDS ORDERED: ROCURONIUM BROMIDE 10 MG/ML 5 ML VIAL IV ONE (08:36)
[2023-08-30] MEDS ORDERED: PROPOFOL IV EMULSION 10 MG/ML 20 ML VIAL IV ONE (08:36)
[2023-08-30] MEDS ORDERED: fentaNYL citrate PF 100 MCG/2 ML VIAL ONE ×3 (08:37→11:05)
[2023-08-30] MEDS ORDERED: BUPIVACAINE/EPINEPHRINE 0.5% MPF 1:200,000 30 ML VIAL ONE (08:57)
[2023-08-30 08:59] LABS: Basophils # (auto) 0.03 K/uL (0.00-0.20); Basophils % (auto) 0.3 %; Eosinophils # (auto) 0.13 K/uL (0.00-0.50); Eosinophils % (auto) 1.3 %; Hematocrit (blood only) 44.4 % (42.0-52.0); Hemoglobin 14.8 g/dl (14.0-18.0); Immature Granulocytes # (auto) 0.03 K/uL (0.01-0.20); Immature Granulocytes % (auto) 0.3 %; Lymphocytes # (auto) 1.93 K/uL (1.20-3.40); Lymphocytes % (auto) 18.9 %; Mean Corpuscular Hemoglobin 27.3 pg (25.0-34.0); Mean Corpuscular Hgb Conc 33.3 g/dL (32.0-36.0); Mean Corpuscular Volume 81.8 fL (80.0-100.0); Mean Platelet Volume 11.7 fL (9.4-12.4); Monocytes # (auto) 1.29 K/uL (0.11-0.59); Monocytes % (auto) 12.7 %; Neutrophils # (auto) 6.78 K/uL (1.40-6.50); Neutrophils % (auto) 66.5 %; Platelet Count 226 K/uL (130-400); RDW Coefficient of Variation 12.9 % (11.5-14.5); RDW Standard Deviation 38.3 fL (36.4-46.3); Red Blood Count 5.43 M/uL (4.70-6.10); White Blood Count 10.19 K/ul (4.8-10.8)
[2023-08-30 09:17] LABS: Albumin Globulin Ratio 1.3 (0.9-2); Albumin Level 4.5 gm/dl (3.4-5.0); BUN Creatinine Ratio 15.3 (10-20); Bilirubin,Total 1.3 mg/dl (0.2-1.0); Calcium 9.4 mg/dl (8.6-10.3); Creatinine Clr Calc Pharmacy 137.5 ml/min; Est GFR (African American) 144.4 ml/min; Est GFR (Non-African American) 124.6 ml/min; Globulin 3.4 gm/dl (2.5-4.0); Potassium 3.7 mmol/L (3.5-5.1); Total Protein 7.9 gm/dl (6.0-8.3)
[2023-08-30] MEDS ORDERED: ceFAZolin 2000MG 2,000 MG/15 ML SYR IV ONE (09:41)
[2023-08-30] MEDS ORDERED: SURGICEL ABSORB HEMOSTAT 2IN X 14IN TOP ONE (09:46)
[2023-08-30] MEDS ORDERED: SUGAMMADEX SODIUM 200 MG/2 ML VIAL IV ONE (10:44)
[2023-08-30] MEDS ORDERED: PANTOprazole 40 MG in SYRINGE 0 ML IV SCH (11:00)
--- NOTE | 2023-08-30 11:58 | Operative Report ---
PG Post Operative Report Pre & Post Diagnosis Operation Date: 08/30/23 09:30 Pre-Op Diagnosis: Biliary Colic Post-Op Diagnosis: Biliary Colic, Cholelithiasis I identified the patient and participated in the time-out.: Yes Procedure Operation Date: 08/30/23 09:30 Actual Procedures p Laparoscopic Cholecystectomy(Not Applicable) - Pam Gutierrez DO Surgeon Pam Gutierrez DO [employer] Supervisor No reference library assistant Estimated Blood Loss 100 Findings Consistent with Post-Op Diagnosis Specimens Gallbladder Anesthesia Type General Complications None Indications Acute cholecystitis Description of Procedure The patient was brought back to the operating room placed on the operating room table in supine position. SCDs were applied to bilateral lower extremities. The patient was connected to cardiac and oxygen monitoring. General anesthesia was administered and a secured airway was established. The abdomen was prepped and draped in typical sterile fashion and a timeout was conducted. Local anesthetic was injected into the skin at the supraumbilical area, stab incision was made and intra-abdominal access was gained using a Veress needle. Pneumoperitoneum was established to a goal pressure of 15 mmHg. Once this goal was established a 5 mm laparoscope was inserted under direct visualization using a 5 mm Visiport. Attention was then turned to the epigastric area where the skin was again anesthetized and an incision was made. An 11 mm trocar was inserted under direct visualization. 2 additional 5 mm trocars were inserted under direct visualization using the same method. The gallbladder was noted in the right upper quadrant appearing rigid, filled with stones and distended. The OR table was placed in reverse Trendelenburg and left side down. The gallbladder had to be decompressed using a needle in order to be able to grasper for retraction. An infected appearing bile was aspirated. After decompression the gallbladder was grasped at the fundus and retracted superiorly and laterally. The infundibulum was grasped and retracted inferiorly. Tedious careful dissection was undertaken in order to finally expose the cystic triangle. Dissection took place using blunt dissection with a [place] and alternating with suction dissection. This took a very long time and was done very gingerly. The surrounding peritoneum and omentum was densely adhered and scarred to the infundibulum of the gallbladder. There was bleeding during this dissection. An area on the liver had some bleeding that needed to be controlled with elevated cauterization. A piece of Surgicel was also applied to this area. Once the cystic triangle was finally exposed the cystic duct was again tediously dissected to be able to apply two 5 mm clips proximally and 1 distally. The cystic duct was then transected using laparoscopic scissors the area was again gingerly and tediously dissected to isolate the cystic artery which was clipped in the same fashion as the cystic duct and transected using laparoscopic scissor. Careful dissection was undertaken to remove the gallbladder away from the liver bed. This was done using mostly blunt dissection with some alternating cautery. The gallbladder was placed in an Endo Catch bag and removed from the intra-abdominal space. The gallbladder was sent to pathology in a labeled container for further analysis. The right upper quadrant was copiously irrigated and suctioned of blood clots and blood. The lower abdomen was also suctioned the liver bed was rechecked multiple times for hemostasis and no active bleeding was present. The area was copiously irrigated with several liters of normal saline and suctioned away. Pneumoperitoneum was evacuated all instruments and trocars were removed. The fascia at the level of the epigastric incision was closed using 0 Vicryl suture. The skin was closed using 4-0 Vicryl suture at the 4 incisions. The abdomen was cleaned with a saline soaked lap pad and dried. Dermabond was used to seal the incisions. The patient tolerated the procedure well. He was awakened from anesthesia, the secure airway was removed and he was transferred to recovery in stable cond ition. I attest to the content of the Intraoperative Record and any orders documented therein. Any exceptions are noted below.
--- NOTE | 2023-08-30 12:22 | Anesthesiology Progress Note ---
Date of Service August 30, 2023 Anesthesia Post Procedure Vital Signs Vital Signs: Temp Pulse Pulse Resp BP Pulse Ox O2 Del Method 08/30/23 12:15 97.9 F 61 16 120/66 97 Room Air 08/30/23 12:05 65 18 126/67 100 Room Air 08/30/23 11:55 82 14 116/77 97 Room Air 08/30/23 11:49 97.7 F 93 H 14 130/73 98 Room Air 08/30/23 07:35 98.1 F 85 18 102/67 97 Room Air 08/29/23 21:10 99.0 F 100 H 16 134/75 98 Room Air 08/29/23 14:26 98.6 F 95 H 18 117/72 98 Room Air Pain Intensity Abdomen: Pain Intensity: 1 Transfer of Care Handoff Completed per policy Notes Mental Status: alert / awake / arousable and participated in evaluation Patient Amnestic to Procedure: Yes Nausea / Vomiting: adequately controlled Pain: adequately controlled Airway Patency, RR, SpO2: stable & adequate BP & HR: stable & adequate Hydration State: stable & adequate Anesthetic Complications: no major complications apparent and Pt Satisfied with anesthetic care
[2023-08-30] MEDS: PANTOprazole 40 MG in SYRINGE 0 ML IV SCH (13:18)
[2023-08-30] MEDS ORDERED: oxyCODONE/ACETAMINOPHEN 5mg/325mg TAB PO STA (14:32)
--- NOTE | 2023-08-30 15:01 | Hospitalist Progress Note ---
Date of Service August 30, 2023 Assessment & Plan (1) Biliary colic: (2) Asthma: Plan Pt is a 23 year old male with PMH of asthma presenting with RUQ abdominal pain. Initial workup, given lack of WBC elevation as well as imaging findings, appears most consistent with biliary colic due to cholelithiasis rather than overt cholecystitis. #Biliary Colic: - No evidence of acute cholecystitis at this time, will defer antibiotics at this time Patient had a laparoscopic cholecystectomy done today #Asthma: - Continue prn albuterol Dispo: Med/Surg Diet: NPO VTE ppx: deferred, pt able to ambulate Code: Full code Admission and Anticipated Discharge Date Admission Date: August 28, 2023 Subjective Patient feels well. He just got back from the OR. Laparoscopic cholecystectomy done today. Review of Systems Review of Systems: All systems reviewed & are unremarkable except as noted in Subjective Physical Exam Physical Exam: General: Awake, conversant Heart: S1, S2/regular rate and rhythm, no murmur rubs or gallops Lungs: Clear to auscultation bilaterally. Normal effort Abdomen: Soft/nontender/nondistended. No hepatosplenomegaly Extremities: No clubbing/cyanosis. No edema Behavior: Appropriate, cooperative Results & Data Results & Data Vital Signs (Past 12 Hours) Vital Signs Temp Pulse Pulse Resp BP Pulse Ox O2 Del Method 08/30/23 14:42 82 18 120/73 99 Room Air 08/30/23 13:50 36.4 C L 82 18 116/65 98 Room Air 08/30/23 13:20 88 18 111/64 99 Room Air 08/30/23 12:45 36.5 C 72 16 119/71 100 Room Air 08/30/23 12:25 66 18 117/65 97 Room Air 08/30/23 12:15 36.6 C 61 16 120/66 97 Room Air 08/30/23 12:05 65 18 126/67 100 Room Air 08/30/23 11:55 82 14 116/77 97 Room Air 08/30/23 11:49 36.5 C 93 H 14 130/73 98 Room Air 08/30/23 07:35 36.7 C 85 18 102/67 97 Room Air PG Care Time/CCT Total # of Minutes Spent Total Time Spent with Patient: Total time spent is greater than 50% in coordination of care (as documented) at patient's floor/unit and/or counseling patient: Coding Level of Care Code 43051 SUB INP/OBS CARE MIN Diagnoses Biliary colic K80.50 Asthma J45.909
[2023-08-31] MEDS: oxyCODONE/ACETAMINOPHEN 5mg/325mg TAB PO PRN ×2 (07:57→15:06)
[2023-08-31 09:15] LABS: Basophils # (auto) 0.02 K/uL (0.00-0.20); Basophils % (auto) 0.2 %; Eosinophils # (auto) 0.04 K/uL (0.00-0.50); Eosinophils % (auto) 0.3 %; Hematocrit (blood only) 33.4 % (42.0-52.0); Hemoglobin 11.7 g/dl (14.0-18.0); Immature Granulocytes # (auto) 0.07 K/uL (0.01-0.20); Immature Granulocytes % (auto) 0.5 %; Lymphocytes # (auto) 1.49 K/uL (1.20-3.40); Lymphocytes % (auto) 11.5 %; Mean Corpuscular Hemoglobin 27.5 pg (25.0-34.0); Mean Corpuscular Volume 78.6 fL (80.0-100.0); Mean Platelet Volume 11.7 fL (9.4-12.4); Monocytes # (auto) 1.16 K/uL (0.11-0.59); Neutrophils # (auto) 10.17 K/uL (1.40-6.50); Neutrophils % (auto) 78.5 %; Platelet Count 220 K/uL (130-400); RDW Coefficient of Variation 12.9 % (11.5-14.5); RDW Standard Deviation 36.7 fL (36.4-46.3); Red Blood Count 4.25 M/uL (4.70-6.10); White Blood Count 12.95 K/ul (4.8-10.8)
[2023-08-31 09:29] LABS: Albumin Level 3.7 gm/dl (3.4-5.0); Bilirubin Direct 0.2 mg/dl (0-0.2); Bilirubin,Total 0.7 mg/dl (0.2-1.0); Total Protein 6.5 gm/dl (6.0-8.3)
--- NOTE | 2023-08-31 09:41 | Surgery Progress Note ---
I have seen and examined this patient with the surgical PA. I agree with this assessment and plan. Date of Service August 31, 2023 Assessment & Plan (1) S/P laparoscopic cholecystectomy: Plan: POD#1 laparoscopic cholecystectomy WBC 12.9 (10), Hbg 11.7(14). Vitals are stable, afebrile, HR and BP's stable Reports incisional soreness. Denies lightheadedness/dizziness Tolerating a diet Would prefer to keep patient one more day to check on repeat WBC and Hbg tomorrow. Will d/c Toradol Hopefully home tomorrow pending improving/stable blood work Admission and Anticipated Discharge Date Admission Date: August 28, 2023 Subjective Patient feeling better than admission. Does report some incisional pain, worse with movement, but controlled. Tolerating a diet without nausea/vomiting. Physical Exam Physical Exam: awake/alert, no distress Respiratory: normal respiratory effort Gastrointestinal (Abdomen): Percussion/Palpation: + abdomen tender (gregorio incisional discomfort to palpation) and abdomen soft Results & Data Vital Signs (Past 12 Hours) Vital Signs Temp Pulse Resp BP Pulse Ox O2 Del Method 08/31/23 07:11 36.8 C 84 16 111/53 L 96 Room Air 08/31/23 03:00 36.8 C 80 16 112/56 L 97 Room Air 08/30/23 23:00 37.0 C 84 16 116/73 98 Room Air PG Care Time/CCT Total # of Minutes Spent Total Time Spent with Patient: Total time spent is greater than 50% in coordination of care (as documented) at patient's floor/unit and/or counseling patient: Coding Level of Care Code 59358 Post Operative Follow-Up Diagnoses S/P laparoscopic cholecystectomy Z90.49
[2023-08-31] MEDS: PANTOprazole 40 MG in SYRINGE 0 ML IV SCH (11:00)
--- NOTE | 2023-08-31 16:24 | Hospitalist Progress Note ---
Date of Service August 31, 2023 Assessment & Plan (1) Biliary colic: (2) Asthma: Plan Pt is a 23 year old male with PMH of asthma presenting with RUQ abdominal pain. Initial workup, given lack of WBC elevation as well as imaging findings, appears most consistent with biliary colic due to cholelithiasis rather than overt cholecystitis. #Biliary Colic: - No evidence of acute cholecystitis at this time, will defer antibiotics at this time Patient had a laparoscopic cholecystectomy done 08/31 Mild leukocytosis noted general surgery recommends keeping the patient in the hospital for 1 more night. #Asthma: - Continue prn albuterol Dispo: Med/Surg Diet: Tolerating diet VTE ppx: deferred, pt able to ambulate Code: Full code Admission and Anticipated Discharge Date Admission Date: August 28, 2023 Subjective patient had a laparoscopic cholecystectomy done yesterday. He is complaining of mild pain at the surgical sites. The biliary colic has resolved. Review of Systems Review of Systems: All systems reviewed & are unremarkable except as noted in Subjective Physical Exam Physical Exam: General: Awake, conversant Heart: S1, S2/regular rate and rhythm, no murmur rubs or gallops Lungs: Clear to auscultation bilaterally. Normal effort Abdomen: Soft/nontender/nondistended. No hepatosplenomegaly Extremities: No clubbing/cyanosis. No edema Behavior: Appropriate, cooperative Results & Data Results & Data Vital Signs (Past 12 Hours) Vital Signs Temp Pulse Resp BP Pulse Ox O2 Del Method 08/31/23 15:08 36.5 C 76 18 104/66 98 Room Air 08/31/23 07:11 36.8 C 84 16 111/53 L 96 Room Air PG Care Time/CCT Total # of Minutes Spent Total Time Spent with Patient: Total time spent is greater than 50% in coordination of care (as documented) at patient's floor/unit and/or counseling patient: Coding Level of Care Code 63141 SUB INP/OBS CARE 2/35MIN Diagnoses Biliary colic K80.50 Asthma J45.909
[2023-09-01] MEDS: oxyCODONE/ACETAMINOPHEN 5mg/325mg TAB PO PRN (07:21)
[2023-09-01 07:58] LABS: Basophils # (auto) 0.03 K/uL (0.00-0.20); Basophils % (auto) 0.4 %; Eosinophils # (auto) 0.16 K/uL (0.00-0.50); Hematocrit (blood only) 31.3 % (42.0-52.0); Hemoglobin 10.4 g/dl (14.0-18.0); Immature Granulocytes # (auto) 0.01 K/uL (0.01-0.20); Immature Granulocytes % (auto) 0.1 %; Lymphocytes # (auto) 2.45 K/uL (1.20-3.40); Lymphocytes % (auto) 30.6 %; Mean Corpuscular Hemoglobin 26.7 pg (25.0-34.0); Mean Corpuscular Hgb Conc 33.2 g/dL (32.0-36.0); Mean Corpuscular Volume 80.3 fL (80.0-100.0); Mean Platelet Volume 12.1 fL (9.4-12.4); Monocytes # (auto) 0.93 K/uL (0.11-0.59); Monocytes % (auto) 11.6 %; Neutrophils # (auto) 4.43 K/uL (1.40-6.50); Neutrophils % (auto) 55.3 %; Platelet Count 217 K/uL (130-400); RDW Coefficient of Variation 13.1 % (11.5-14.5); RDW Standard Deviation 37.7 fL (36.4-46.3); White Blood Count 8.01 K/ul (4.8-10.8)
[2023-09-01 08:21] LABS: Alanine Aminotransferase 22 U/L (7-52); Albumin Globulin Ratio 1.3 (0.9-2); Albumin Level 3.5 gm/dl (3.4-5.0); Alkaline Phosphatase 29 U/L (34-104); Anion Gap 7 (3-11); Aspartate Aminotransferase 22 U/L (13-39); BUN Creatinine Ratio 14.1 (10-20); Bilirubin,Total 0.4 mg/dl (0.2-1.0); Blood Urea Nitrogen 9 mg/dl (6-23); Calcium 8.6 mg/dl (8.6-10.3); Carbon Dioxide 27 mmol/L (21-32); Chloride 105 mmol/L (98-107); Creatinine Clr Calc Pharmacy 182.6 ml/min; Est GFR (African American) > 150.0 ml/min; Globulin 2.7 gm/dl (2.5-4.0); Glucose 87 mg/dl (70-99(Fasting)); Potassium 3.8 mmol/L (3.5-5.1); Sodium 139 mmol/L (136-145); Total Protein 6.2 gm/dl (6.0-8.3)
--- NOTE | 2023-09-01 08:42 | Surgery Progress Note ---
Date of Service September 01, 2023 Assessment & Plan (1) Acute and chronic cholecystitis: (2) S/P laparoscopic cholecystectomy: Plan: The patient has done very well. Leukocytosis resolved, he is tolerating a regular diet and presurgical symptoms are resolved. May be discharged home to follow-up with me in the office in 2 weeks Obtain a CBC to follow H/H in 2 days. Admission and Anticipated Discharge Date Admission Date: August 28, 2023 Subjective The patient is feeling well. He has tolerated a regular diet. He denies chest pains, shortness of breath, lightheadedness or dizziness. His pain is very well controlled. He has no nausea and no other complaints. Physical Exam Constitutional: healthy appearing; no acute distress, not ill appearing and not diaphoretic Respiratory: normal respiratory effort; no respiratory distress, no labored breathing and does not use accessory muscles Gastrointestinal (Abdomen): Abdomen is nondistended Abdomen is very soft Incisions are well intact with Dermabond. There is no drainage, erythema or swelling at any of the incision sites. Neurologic: moves all extremities and awake; no focal motor deficits and not confused Results & Data Vital Signs (Past 12 Hours) Vital Signs Temp Pulse Resp BP Pulse Ox O2 Del Method 09/01/23 07:15 36.5 C 67 18 104/64 97 Room Air PG Care Time/CCT Total # of Minutes Spent Total Time Spent with Patient: Total time spent is greater than 50% in coordination of care (as documented) at patient's floor/unit and/or counseling patient: Coding Level of Care Code 79295 Post Operative Follow-Up Diagnoses Acute and chronic cholecystitis K81.2 S/P laparoscopic cholecystectomy Z90.49
[2023-09-01] MEDS: PANTOprazole 40 MG in SYRINGE 0 ML IV SCH (10:45)
--- NOTE | 2023-09-01 14:24 | Discharge Summary ---
Date of Service September 01, 2023 Admission HPI Per Admitting Provider Pt is a 23 year old male with PMH of asthma presenting with abdominal pain. Patient has been having intermittent episodes of RUQ abdominal pain for several months now, became significantly more frequent and more painful over the past week. Patient was seen in the ED on 08/23, workup significant for gallstones on US but no evidence of cholecystitis found, patient was subsequently discharged and told to return if sx recur or worsen. Patient notes that sx initially seemed less intense after discharge from ED, but began experiencing worsening acute pain yesterday that has been constant since. Patient is unsure if abdominal pain is related to eating, notes that he has had poor appetite this week. Also states that his stools have been looser than usual, denies nausea or vomiting. ED Course: Lab workup negative for elevation in WBC count, patient is afebrile. LFTs WNL. Repeat gallbladder US showed nonmobile stone within gallbladder neck vs cystic duct, GB distension with borderline wall thickening. Negative sonographic Sterling sign, no pericholecystic fluid. CT abdomen also done, significant for 9mm stone in gallbladder neck, negative for evidence of acute cholecystitis. Patient given Acetaminophen and fenatanyl for pain control. Principal Diagnosis Constitutional: WD/WN, vitals as above in mild distress Respiratory: normal respiratory effort, lungs clear to auscultation Cardiovascular: RRR, no murmur, no edema Gastrointestinal (Abdomen): Abdomen non-distended, bowel sounds intact, RUQ tender to palpation, negative Sterling sign Skin: no rashes, warm and dry Psychiatric: A+Ox3, euthymic affect Discharge Exam General: Awake, conversant Heart: S1, S2/regular rate and rhythm, no murmur rubs or gallops Lungs: Clear to auscultation bilaterally. Normal effort Abdomen: Soft/nontender/nondistended. No hepatosplenomegaly Extremities: No clubbing/cyanosis. No edema Behavior: Appropriate, cooperative Discharge Data Allergies Allergy/AdvReac Type Severity Reaction Status Date / Time erythromycin base Allergy Severe Hives and Unverified 08/28/23 18:52 nausea Consultations 08/28/23 20:53 Consult General Surgery Stat 08/28/23 21:01 ED Decision to Admit Stat Procedures Performed Operation Date: 08/30/23 09:30 Actual Procedures p Laparoscopic Cholecystectomy(Not Applicable) - Pam Gutierrez DO Ordered Studies 08/28/23 15:58 US gallbladder Stat 08/28/23 18:29 CT Abd and Pelvis [CT abd pelvis IV con only] Stat Hospital Course (1) Biliary colic: (2) Asthma: Plan Pt is a 23 year old male with PMH of asthma presenting with RUQ abdominal pain. Initial workup, given lack of WBC elevation as well as imaging findings, appears most consistent with biliary colic due to cholelithiasis rather than overt cholecystitis. #Biliary Colic: - No evidence of acute cholecystitis at this time, No antibiotics given Patient had a laparoscopic cholecystectomy done 08/31 leukocytosis resolved General surgery cleared the patient for discharge with outpatient follow-up with them. They also ordered a CBC in 2 days to monitor hemoglobin Patient is tolerating solid diet. Pain fairly controlled. #Asthma: - Continue prn albuterol discharge today Total Time Total Time Spent Total Time Spent (In Minutes): 35 Discharge Plan Discharge Items Patient Disposition: Home - Self-Care Reason For Visit: ABDOMINAL PAIN, BILIARY COLIC Discharge Diagnosis: Biliary colic due to cholelithiasis status post laparoscopic cholecystectomy Activity: Resume your previous activity Lifting: No more than 10 pounds Bathing Comment: may shower; no soaking in tubs/pools x 2 weeks Exercise/Sports: Wait until after follow-up appointment Driving/Machine Use: no driving while on any narcotics for pain Non-emergency contact: Primary Care Provider and Surgeon Call non-emergency contact if: you have any medication questions, your symptoms worsen, you have a fever, your temperature is above 101.5, your wound has increased redness and your wound has increased drainage Follow-up/Referrals: [facility] [Primary Care Provider] - Pam Gutierrez DO [Physician] - 09/15/23 10:00 am (Please call to schedule follow up in clinic within 2 weeks ) Diet: Low Fat Ambulatory Orders: Complete Blood Count with Diff (Routine) Timeframe: 2 Days Location: Determined by Patient Ordered By: Elis Zepeda Attending Provider Instructions: Advised to follow-up with PCP in 1 week You may purchase Tylenol over the counter if needed for additional pain control over the next few days. Take per manufacturers instructions Please obtain blood work for a CBC in 2 days time. Then follow up with the surgeon within 2 weeks. Pending Studies at Discharge: No Stand-Alone Forms: My [facility] Medications and DC Order Prescriptions: New oxycodone 5 mg tablet 5 - 10 mg PO .[id number] PRN (Reason: pain, for initial therapy, max 6 tabs per day) Qty: 12 0RF Continued albuterol sulfate 90 mcg/actuation HFA aerosol inhaler 2 puff INHALATION .Q4-6H PRN (Reason: Wheezing) cholecalciferol (vitamin D3) [Vitamin D3] 50 mcg (2,000 unit) Capsule 50 mcg PO DAILY Discharge Orders: Discharge Order (Routine); Ordered 09/01/23 Ordered By: Kyle Carolina/Other Patient Handouts: Having Laparoscopic Cholecystectomy Admission Data Admit Date/Time: 08/28/23 21:41 Attending Provider: Kyle Olsen Admit Provider: Marvin Hogan Primary Care Provider: [facility] Other Providers: Pam Gutierrez ; Suzanne Mccord Other Interventions: Discharge Summary Assessment (RN) Last Done: 09/01/23 12:10 Coding Level of Care Code 07686 INP/OBS DISCH >30 MIN Diagnoses Biliary colic K80.50 Asthma J45.909
== END 2023-09-01 13:08 | disposition home or self-care (01) | DRG 419 ==
LOC: ED 15:34 → SUATTDRO 21:41 → 3N 21:41